=== PATIENT | male | born 1970 | race Caucasian/White ===

== ENCOUNTER 2018-03-20 10:43 | Emergency (ER) | payer OTHER ==
[2018-03-20] MEDS ORDERED: LISI5TAB25 PO (10:53)
[2018-03-20] MEDS ORDERED: AMLO-99 PO (10:53)
--- NOTE | 2018-03-20 11:10 | ER Report ---
History and Physical Time Seen By MD: 11:00 Hx. of Stated Complaint: got vindicator in eye. rinsed eye out immediately. no burning or blurry vision currently HPI/ROS CHIEF COMPLAINT: Left eye irritation HISTORY OF PRESENT ILLNESS: Patient is a 47-year-old male who presents the ED with complaint of left eye irritation after actually splashed some vindicate a chemical that he was using to clean the toilets. 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 Patient denies any fever. He has not noted any visual disturbance. He states that he flushed his eye thoroughly for over a minute and then use soap and water around his eyelid areas. He states that he has not no burning whatsoever now. REVIEW OF SYSTEMS: Constitutional: No fever, no chills. Eyes: No discharge. See history of present illness. ENT: No sore throat. Cardiovascular: No chest pain, no palpitations. Respiratory: No cough, no shortness of breath. Skin: No rashes. Neurological: No headache. Allergies: Coded Allergies: Penicillins (Verified Allergy, Intermediate, 03/20/18) rash Home Meds Reported Medications Amlodipine Besylate (AMLODIPINE BESYLATE) 10 Mg Tablet, 1 TAB PO QDAY, TAB 03/20/18 Lisinopril (LISINOPRIL) 5 Mg Tablet, 5 MG PO QDAY, TAB 03/20/18 Reviewed Nurses Notes: Yes Old Medical Records Reviewed: Yes Hx Substance Use Disorder: No Hx Alcohol Use: No Constitutional Vital Sign - Last 24 Hours 03/20/18 10:49 Temp 97.8 Pulse 67 Resp 12 B/P (MAP) 147/99 Pulse Ox 94 O2 Delivery Room Air Physical Exam General Appearance: The patient is alert, has no immediate need for airway protection and no signs of toxicity. Patient appears to be in no acute distress. Eyes: Pupils equal and round no pallor or injection. EOMs are full bilaterally. There is no conjunctival injection appreciated. ENT, Mouth: Mucous membranes are moist. Respiratory: There are no retractions, lungs are clear to auscultation. Cardiovascular: Regular rate and rhythm. Skin: Warm and dry, no rashes. No surrounding erythema of the left eye. DIFFERENTIAL DIAGNOSIS: After history and physical exam differential diagnosis was considered for eye irritation including foreign body, corneal abrasion, irritation. This is an incomplete list. Medical Decision Making ED Course/Re-evaluation ED Course Exam reveals no conjunctival injection whatsoever. Patient is having no symptoms currently. There appears to be no reason to examine the eye further. He likely does have some mild eye irritation that essentially has resolved. He did treat himself by flushing his eye. Decision to Disposition Date: Mar 20, 2018 Decision to Disposition Time: 11:14 Depart Departure Latest Vital Signs Vital Signs Date Time Temp Pulse Resp B/P (MAP) Pulse Ox O2 Delivery O2 Flow Rate FiO2 03/20/18 10:49 97.8 67 12 147/99 94 Room Air Impression: Primary Impression: Irritation of left eye Condition: Improved Disposition: HOME OR SELF-CARE Additional Instructions: Follow-up with primary care provider or downstream biomanufacturing technician as needed. If having worsening or concerning symptoms may return to emergency department. MARYSE TELLO PA-C Mar 20, 2018 11:10
[2018-03-20 11:19] VITALS: BP 137/99
== END 2018-03-20 11:22 | disposition home or self-care (01) ==
LOC: ER 10:45
DX: H57.8 Other specified disorders of eye and adnexa (principal); Z77.098 Contact with and (suspected) exposure to other hazardous, chiefly nonmedicinal, chemicals
CPT/HCPCS: 99281

== ENCOUNTER → 2018-10-30 | Outpatient (CLI) | payer OTHER ==
[~2018-10-30] MED LIST: AMLO-127 PO; FLU60VIA41 IM; LISI5TAB25 PO
== END ==
LOC: LAB 07:20
PROVIDERS: ATTEND Internal Medicine Nephrology
DX: N02.8 Recurrent and persistent hematuria with other morphologic changes (principal); M1A.0790 Idiopathic chronic gout, unspecified ankle and foot, without tophus (tophi)
CPT/HCPCS: 36415; 82040; 82310; 82374; 82435; 82465; 82565; 82947; 83718; 84100; 84132; 84295; 84478; 84520; 84550

== ENCOUNTER → 2018-11-30 | Outpatient (CLI) | payer OTHER ==
[~2018-11-30] MED LIST changes: +ALLO100T70 PO; +AMLO-125 PO; +LISI20TA29 PO; +PNEI IJ
[2018-11-30 13:43] LABS: PLATELET COUNT, AUTOMATED 354 K/uL (150-450)
[2018-11-30 13:52] LABS: INR 0.94
== END ==
LOC: LAB 13:24
PROVIDERS: ATTEND Internal Medicine Nephrology
DX: N02.8 Recurrent and persistent hematuria with other morphologic changes (principal)
CPT/HCPCS: 36415; 82040; 82310; 82374; 82435; 82565; 82570; 82947; 84100; 84132; 84156; 84295; 84520; 85025; 85610; 85730